=== PATIENT | female | born 1960 | race Caucasian/White ===

== ENCOUNTER → 2016-10-08 | Outpatient (CLI) | payer OTHER | LOC: RAD 11:06 | PROVIDERS: ATTEND Psychiatry & Neurology Neuromuscular Medicine | DX: M54.2 Cervicalgia (principal); M62.81 Muscle weakness (generalized); M48.02 Spinal stenosis, cervical region | CPT/HCPCS: 72141 ==

== ENCOUNTER 2016-12-25 16:52 | Emergency (ER) | payer OTHER ==
--- NOTE | 2016-12-25 17:20 | ER Document Report ---
ED General - General Stated Complaint: POSSIBLE ALLERGIC REACTION Time Seen by Provider: 12/25/16 17:20 Mode of Arrival: Medic Information source: Patient, Emergency Med Personnel Notes: This is a 56-year-old female that is brought in by EMS with acute reaction to IV dye. The patient has a history of an essential tremor, cervical disc disease and was recently evaluated by urologist for hematuria. She underwent patient's CT of the abdomen with contrast in [facility] and was treated with prednisone overnight beforehand. The patient states that shortly after the CT, she did have some tingling in her tongue but did not feel that bad. She drove home and by the time she got home she was developing hives, sweating and tongue swelling. She was at the urologist office at that time and she was given subcu epinephrine, Solu-Medrol and hydralazine. EMS was called to the scene and the patient was given by EMS: Benadryl, ranitidine and albuterol. TRAVEL OUTSIDE OF THE [place] IN LAST 30 DAYS: No - HPI Onset: Just prior to arrival Onset/Duration: Sudden Quality of pain: No pain Severity: None Pain Level: Denies Associated symptoms: Shortness of breath, Other - Swelling and erythema. denies : Chest pain, Fever Exacerbated by: Denies Relieved by: Denies Similar symptoms previously: Yes Recently seen / treated by doctor: Yes - Related Data Allergies/Adverse Reactions: azithromycin [From Zithromax] Allergy (Unknown, Verified 11/16/11 17:57) cetirizine HCl [From Zyrtec] Allergy (Unknown, Verified 11/16/11 17:57) clarithromycin [From Biaxin] Allergy (Unknown, Verified 11/16/11 17:57) doxepin [Doxepin] Allergy (Unknown, Verified 11/16/11 17:57) iodine [Iodine] Allergy (Unknown, Verified 11/16/11 17:57) latex [Latex] Allergy (Unknown, Verified 11/16/11 17:57) morphine [Morphine] Allergy (Unknown, Verified 11/16/11 17:57) povidone-iodine [From Betadine] Allergy (Unknown, Verified 11/16/11 17:57) Shellfish * Allergy (Unknown, Verified 11/16/11 17:57) Soap [From Betadine] Allergy (Unknown, Verified 11/16/11 17:57) Sulfa (Sulfonamide Antibiotics) Allergy (Unknown, Verified 11/16/11 17:57) wheat [Wheat] Allergy (Unknown, Verified 11/16/11 17:57) Ant Bites Allergy (Unknown, Uncoded 11/16/11 17:57) Bananas Allergy (Unknown, Uncoded 11/16/11 17:57) Bee Stings Allergy (Unknown, Uncoded 11/16/11 17:57) Mushrooms Allergy (Unknown, Uncoded 11/16/11 17:57) Nuts Allergy (Unknown, Uncoded 11/16/11 17:57) Seafood Allergy (Unknown, Uncoded 11/16/11 17:57) Spider Bites Allergy (Unknown, Uncoded 11/16/11 17:57) Past Medical History - General Information source: Patient - Social History Smoking Status: Never Smoker Cigarette use (# per day): No Chew tobacco use (# tins/day): No Smoking Education Provided: No Frequency of alcohol use: None Drug Abuse: None Lives with: Family Family History: Reviewed & Not Pertinent Patient has suicidal ideation: No Patient has homicidal ideation: No - Past Medical History Cardiac Medical History: Reports: None Pulmonary Medical History: Reports: None EENT Medical History: Reports: None Neurological Medical History: Reports: Hx Migraine Endocrine Medical History: Reports: None Renal/ Medical History: Reports: Hx Kidney Stones - Diarrhea, kidney stones, Other Malignancy Medical History: Reports: None GI Medical History: Reports: None Musculoskeltal Medical History: Reports Hx Arthritis Skin Medical History: Reports None Psychiatric Medical History: Reports: None Traumatic Medical History: Reports: None Infectious Medical History: Reports: None Past Surgical History: Reports: Hx Section - x2 - Immunizations Hx Diphtheria, Pertussis, Tetanus Vaccination: No Review of Systems - Review of Systems Constitutional: denies: Chills, Fever EENT: See HPI Cardiovascular: No symptoms reported Respiratory: See HPI Gastrointestinal: No symptoms reported Genitourinary: No symptoms reported Female Genitourinary: No symptoms reported Musculoskeletal: No symptoms reported Skin: No symptoms reported Hematologic/Lymphatic: No symptoms reported Neurological/Psychological: No symptoms reported Physical Exam - Vital signs Vitals: Temp BP Pulse Ox 98.4 F 125/92 H 100 12/25/16 16:57 12/25/16 16:57 12/25/16 16:57 Notes: Physical exam: GENERAL: 56-year-old female, alert and oriented 3 HEAD: Atraumatic, normocephalic. EYES: Pupils equal round and reactive to light, extraocular movements intact, sclera anicteric, conjunctiva are normal. ENT: Obvious tongue swelling or swelling at the bottom of the tongue. Moist mucous membranes. NECK: Normal range of motion, supple without lymphadenopathy. No stridor. LUNGS: Scattered wheezing good airway movement HEART: Regular rate and rhythm without murmurs, rubs or gallops. ABDOMEN: Soft, normoactive bowel sounds. No tenderness to palpation. No guarding, no rebound. No masses appreciated. EXTREMITIES: Normal range of motion, no pitting or edema. No clubbing or cyanosis. NEUROLOGICAL: Trauma (baseline) Cranial nerves II through XII grossly intact. Normal speech, normal gait. PSYCH: Normal mood, normal affect. SKIN: Erythematous skin on the face and upper extremities Course - Re-evaluation Re-evalutation: 12/25/16 22:00 It was observed several hours and she has had no difficulty. Currently she states she feels a little red in the face but is breathing well and has no difficulty with her breathing and she states she feels fine. She is requesting to go home. - Vital Signs Vital signs: Temp Pulse Resp BP Pulse Ox 98.4 F 15 110/56 L 96 12/25/16 16:57 12/25/16 18:39 12/25/16 18:39 12/25/16 18:39 - Laboratory Result Diagrams: 12/25/16 16:50 12/25/16 16:50 Laboratory results interpreted by me: 12/25/16 12/25/16 16:50 16:50 WBC 12.5 H Seg Neutrophils % 81.1 H Monocytes % 2.3 L Absolute Neutrophils 10.1 H Chloride 108 H Carbon Dioxide 17 L Glucose 296 H - Diagnostic Test Radiology reviewed: Image reviewed, Reports reviewed - Patient has no infiltrates or effusion Discharge - Discharge Clinical Impression: Allergic reaction to IV dye Condition: Stable Disposition: HOME, SELF-CARE Instructions: Acute Allergic Reaction ([facility]) Additional Instructions: Recommendations: Continue with the Zantac twice daily: Begin tomorrow. Take the prednisone once daily: Start tomorrow morning. Take Benadryl every 6 hours for the next few days: 25-50 mg every 6 hours. Then , take it every 6 hours for itching. I have any shortness of breath, take the EpiPen and then return to the emergency room at once Up with your primary care doctor as well as your urologist Prescriptions: Prednisone [Deltasone 20 mg Tablet] 3 tab PO DAILY 5 Days Ranitidine HCl [Zantac] 150 mg PO BID #10 tablet
[2016-12-25 18:03] LABS: ABSOLUTE MONOCYTES (AUTO) 0.3 10^3/uL (0.1-1.4); ABSOLUTE NEUT (AUTO) 10.1 10^3/uL (1.7-8.2); BASOPHILS % (AUTO) 0.2 % (0-2); LYMPHOCYTES % (AUTO) 16.4 % (13-45); MEAN CORPUSCULAR HEMOGLOBIN 31.5 pg (27.0-33.4); MEAN CORPUSCULAR HGB CONC 32.5 g/dL (32.0-36.0); MEAN CORPUSCULAR VOLUME 97 fl (80-97); MONOCYTES % (AUTO) 2.3 % (3-13); RED BLOOD COUNT 4.44 10^6/uL (3.72-5.28); RED CELL DISTRIBUTION WIDTH 12.7 % (11.5-14.0); SEGMENTED NEUTROPHILS % (AUTO) 81.1 % (42-78); WHITE BLOOD COUNT 12.5 10^3/uL (4.0-10.5)
--- NOTE | 2016-12-25 18:17 | RADIOLOGY REPORT (SQ) ---
EXAM DESCRIPTION: CHEST SINGLE VIEW COMPLETED DATE/TIME: 12/25/2016 6:06 pm REASON FOR STUDY: sob COMPARISON: 11/16/2011 EXAM PARAMETERS: NUMBER OF VIEWS: One view. TECHNIQUE: Single frontal radiographic view of the chest acquired. RADIATION DOSE: NA LIMITATIONS: None. FINDINGS: LUNGS AND PLEURA: No opacities, masses or pneumothorax. No pleural effusion. MEDIASTINUM AND HILAR STRUCTURES: No masses. Contour normal. HEART AND VASCULAR STRUCTURES: Heart normal in size. Normal vasculature. BONES: No acute findings. HARDWARE: None in the chest. OTHER: No other significant finding. IMPRESSION: NO ACUTE RADIOGRAPHIC FINDING IN THE CHEST. TECHNICAL DOCUMENTATION: JOB ID: [id number]
[2016-12-25 18:19] LABS: ALANINE AMINOTRANSFERASE 22 U/L (9-52); ALKALINE PHOSPHATASE 81 U/L (38-126); ANION GAP 17 (5-19); ASPARTATE AMINO TRANSFERASE 22 U/L (14-36); BILIRUBIN,DIRECT 0.3 mg/dL (0.0-0.4); BILIRUBIN,TOTAL 0.4 mg/dL (0.2-1.3); BLOOD UREA NITROGEN 13 mg/dL (7-20); CALCIUM 8.9 mg/dL (8.4-10.2); CARBON DIOXIDE 17 mmol/L (22-30); CHLORIDE 108 mmol/L (98-107); CREATINE KINASE 91 U/L (30-135); CREATININE RESULT 0.67 mg/dL (0.52-1.25); GLUCOSE 296 mg/dL (75-110); POTASSIUM 3.6 mmol/L (3.6-5.0); SODIUM 142.4 mmol/L (137-145); TOTAL PROTEIN 7.1 g/dL (6.3-8.2)
[2016-12-25 18:31] LABS: CREATINE KINASE MB 1.02 ng/mL (<4.55); TROPONIN I < 0.012 ng/mL
[2016-12-25 18:49] VITALS: BP 110/56
--- NOTE | 2016-12-26 03:57 | EKG REPORT ---
SEVERITY:- BORDERLINE ECG - SINUS RHYTHM BORDERLINE T ABNORMALITIES, ANTERIOR LEADS : Confirmed by: Ashlee Mojica MD 26-Dec-2016 03:56:02
== END 2016-12-25 20:54 | disposition home or self-care (01) ==
LOC: ER 16:52
DX: L50.9 Urticaria, unspecified (principal); R61 Generalized hyperhidrosis; R22.0 Localized swelling, mass and lump, head; T50.8X5A Adverse effect of diagnostic agents, initial encounter; Y92.531 Health care provider office as the place of occurrence of the external cause; R06.02 Shortness of breath; R06.2 Wheezing; Z88.1 Allergy status to other antibiotic agents; Z88.8 Allergy status to other drugs, medicaments and biological substances; Z91.040 Latex allergy status; Z88.5 Allergy status to narcotic agent; Z91.013 Allergy to seafood; Z88.2 Allergy status to sulfonamides; Z91.048 Other nonmedicinal substance allergy status; Z91.038 Other insect allergy status; Z91.030 Bee allergy status; Z88.3 Allergy status to other anti-infective agents
CPT/HCPCS: 36415; 71010; 80053; 82550; 82553; 84484; 85025; 93005; 93010; 99284

== ENCOUNTER 2020-06-30 21:55 | Emergency (ER) | payer OTHER ==
[2020-06-30] MEDS ORDERED: ONDANSETRON 4 MG TAB.RAPDIS PO ONE (22:56)
[2020-06-30] MEDS ORDERED: KETOROLAC TROMETHAMINE 60 MG/2 ML SDV IM ONE (22:56)
--- NOTE | 2020-06-30 22:58 | ER Document Report ---
ED Medical Screen (RME) - General Chief Complaint: Possible Kidney Stone Stated Complaint: RIGHT SEVERE FLANK PAIN AND PELVIC Time Seen by Provider: 06/30/20 22:52 Primary Care Provider: JESSIE EM FNP [Primary Care Provider] - Follow up as needed Mode of Arrival: Wheelchair Information source: Patient Notes: HPI; 60-year-old female presents to the emergency room with worsening left flank pain that started earlier this evening. Patient states she started having left flank pain on Thursday had a virtual visit with her primary care physician on Thursday. Does have a history of kidney stones. She states her primary care provider physician put her on 3 days of Cipro patient states she was getting better and then symptoms worsened tonight. She has been taking her hydrocodone which she takes for chronic pain without any relief. Does complain of nausea but no vomiting. Not taking any other medications for her symptoms. PE: Alert and oriented x3. Lungs: Clear to auscultation without rales, rhonchi, wheezes. Heart: Regular rate rhythm without murmurs, rubs, gallops. Positive for left CVA tenderness. I have greeted and performed a rapid initial assessment of this patient. A comprehensive ED assessment and evaluation of the patient, analysis of test results and completion of the medical decision making process will be conducted by additional ED providers. I have specifically instructed the patient or family members with the patient to immediately return to any nursing staff should anything change in the patient's condition or with their chief complaint. TRAVEL OUTSIDE OF THE [place] IN LAST 30 DAYS: No - Related Data Allergies/Adverse Reactions: azithromycin [From Zithromax] Allergy (Unknown, Verified 05/10/17 04:34) cetirizine HCl [From Zyrtec] Allergy (Unknown, Verified 05/10/17 04:34) clarithromycin [From Biaxin] Allergy (Unknown, Verified 05/10/17 04:34) doxepin [Doxepin] Allergy (Unknown, Verified 05/10/17 04:34) iodine [Iodine] Allergy (Unknown, Verified 05/10/17 04:34) latex [Latex] Allergy (Unknown, Verified 05/10/17 04:34) morphine [Morphine] Allergy (Unknown, Verified 05/10/17 04:34) povidone-iodine [From Betadine] Allergy (Unknown, Verified 05/10/17 04:34) Shellfish * Allergy (Unknown, Verified 05/10/17 04:34) Soap [From Betadine] Allergy (Unknown, Verified 05/10/17 04:34) Sulfa (Sulfonamide Antibiotics) Allergy (Unknown, Verified 05/10/17 04:34) wheat [Wheat] Allergy (Unknown, Verified 05/10/17 04:34) fluticasone [From Flonase] Allergy (Verified 05/10/17 04:34) gabapentin Allergy (Verified 05/10/17 04:34) liothyronine [From Cytomel] Allergy (Verified 05/10/17 04:34) primidone Allergy (Verified 05/10/17 04:34) tramadol [From Ultram] Allergy (Verified 05/10/17 04:34) Ant Bites Allergy (Unknown, Uncoded 05/10/17 04:34) Bananas Allergy (Unknown, Uncoded 05/10/17 04:34) Bee Stings Allergy (Unknown, Uncoded 05/10/17 04:34) Mushrooms Allergy (Unknown, Uncoded 05/10/17 04:34) Nuts Allergy (Unknown, Uncoded 05/10/17 04:34) Seafood Allergy (Unknown, Uncoded 05/10/17 04:34) Spider Bites Allergy (Unknown, Uncoded 05/10/17 04:34) Past Medical History - Social History Chew tobacco use (# tins/day): No Drug Abuse: None Neurological Medical History: Reports: Hx Migraine Renal/ Medical History: Reports: Hx Kidney Stones - Diarrhea, kidney stones. Denies: Hx Peritoneal Dialysis Musculoskeltal Medical History: Reports Hx Arthritis Past Surgical History: Reports: Hx Section - x2, Hx Orthopedic Surgery - neck,left knee, Hx Thyroid Surgery - thyroidectomy - Immunizations Hx Diphtheria, Pertussis, Tetanus Vaccination: No Physical Exam - Vital signs Vitals: Temp Pulse Resp BP Pulse Ox 97.7 F 57 L 18 132/53 H 96 06/30/20 22:14 06/30/20 22:14 06/30/20 22:14 06/30/20 22:14 06/30/20 22:14 Course - Vital Signs Vital signs: Temp Pulse Resp BP Pulse Ox 97.7 F 57 L 18 132/53 H 96 06/30/20 22:14 06/30/20 22:14 06/30/20 22:14 06/30/20 22:14 06/30/20 22:14 Doctor's Discharge - Discharge Referrals: JESSIE EM FNP [Primary Care Provider] - Follow up as needed
[2020-07-01 00:28] LABS: APPEARANCE,URINE SLIGHTLY-CLOUDY; BILIRUBIN,URINE NEGATIVE (NEGATIVE); COLOR,URINE YELLOW; GLUCOSE, URINE NEGATIVE (NEGATIVE); KETONES,URINE NEGATIVE (NEGATIVE); LEUKOCYTE ESTERASE,URINE NEGATIVE (NEGATIVE); NITRITE,URINE NEGATIVE (NEGATIVE); PROTEIN,URINE 100 mg/dL (NEGATIVE); URINE SPECIFIC GRAVITY 1.012; UROBILINOGEN,URINE NEGATIVE mg/dL (<2.0)
--- NOTE | 2020-07-01 00:30 | RADIOLOGY REPORT (SQ) ---
CLINICAL HISTORY: flank pain COMPARISON: None. TECHNIQUE: CT ABDOMEN PELVIS WITHOUT IV CONTRAST on 06/30/2020 10:56 PM DATA SME This exam was performed according to our departmental dose-optimization program, which includes automated exposure control, adjustment of the mA and/or kV according to patient size and/or use of iterative reconstruction technique. FINDINGS: Lower lungs are clear. Abdomen: The liver is normal in appearance. There is no biliary dilatation. Gallbladder is normal in appearance. The pancreas and spleen are normal in appearance. Adrenal glands are normal. Right kidney contains a 2 mm mid pole calculus without hydronephrosis. Left kidney contains two punctate lower pole calculi with mild hydronephrosis. There is a 4 mm left UVJ calculus. Abdominal aorta is normal in course and caliber without aneurysm. There is no free air. There is no retroperitoneal adenopathy. Pelvis: There is large amount of stool throughout the colon. Urinary bladder is unremarkable. There is no free fluid. Uterus is normal in size. Appendix is normal. Skeleton: There are no acute osseous findings. No suspicious bony lesions. IMPRESSION: Bilateral nephrolithiasis with a mildly obstructing 4 mm left UVJ calculus.
[2020-07-01 02:08] LABS: ABSOLUTE BASOPHILS # (AUTO) 0.1 10^3/uL (0.0-0.2); ABSOLUTE EOSINOPHILS # (AUTO) 0.1 10^3/uL (0.0-0.6); ABSOLUTE LYMPHOCYTES (AUTO) 1.6 10^3/uL (0.5-4.7); ABSOLUTE MONOCYTES (AUTO) 0.3 10^3/uL (0.1-1.4); ABSOLUTE NEUT (AUTO) 6.3 10^3/uL (1.7-8.2); BASOPHILS % (AUTO) 1.1 % (0-2); HEMATOCRIT 40.4 % (36.0-47.0); LYMPHOCYTES % (AUTO) 18.9 % (13-45); MEAN CORPUSCULAR HEMOGLOBIN 33.4 pg (27.0-33.4); MEAN CORPUSCULAR HGB CONC 34.7 g/dL (32.0-36.0); MEAN CORPUSCULAR VOLUME 96 fl (80-97); MONOCYTES % (AUTO) 3.2 % (3-13); PLATELET COUNT 162 10^3/uL (150-450); RED BLOOD COUNT 4.21 10^6/uL (3.72-5.28); RED CELL DISTRIBUTION WIDTH 12.9 % (11.5-14.0); SEGMENTED NEUTROPHILS % (AUTO) 75.8 % (42-78); TOTAL CELLS COUNTED % (AUTO) 100 %; WHITE BLOOD COUNT 8.4 10^3/uL (4.0-10.5)
[2020-07-01 02:23] LABS: ALBUMIN 4.2 g/dL (3.5-5.0); ALKALINE PHOSPHATASE 136 U/L (38-126); ANION GAP 8 (5-19); ASPARTATE AMINO TRANSFERASE 23 U/L (14-36); BILIRUBIN,DIRECT 0.2 mg/dL (0.0-0.4); BILIRUBIN,TOTAL 0.5 mg/dL (0.2-1.3); BLOOD UREA NITROGEN 18 mg/dL (7-20); CALCIUM 9.3 mg/dL (8.4-10.2); CARBON DIOXIDE 24 mmol/L (22-30); CHLORIDE 107 mmol/L (98-107); GLUCOSE 129 mg/dL (75-110); POTASSIUM 4.4 mmol/L (3.6-5.0); TOTAL PROTEIN 7.4 g/dL (6.3-8.2)
--- NOTE | 2020-07-01 03:00 | ER Document Report ---
ED GI/ - General Chief Complaint: Possible Kidney Stone Stated Complaint: RIGHT SEVERE FLANK PAIN AND PELVIC Time Seen by Provider: 06/30/20 22:52 Primary Care Provider: JESSIE EM FNP [Primary Care Provider] - Follow up as needed BHARTI ROJO NP [NO LOCAL MD] - Follow up in 3-5 days Mode of Arrival: Wheelchair Notes: Patient is a 60-year-old female who presents emergency department with a chief complaint of right flank and pelvic pain that started about a week ago. She was seen by her primary care provider and was started on ciprofloxacin. States that her pain has not gotten any better. States that she has a history of kidney stones in the past. Describes her pain as a sharp, stabbing pain. TRAVEL OUTSIDE OF THE [place] IN LAST 30 DAYS: No - Related Data Allergies/Adverse Reactions: azithromycin [From Zithromax] Allergy (Unknown, Verified 05/10/17 04:34) cetirizine HCl [From Zyrtec] Allergy (Unknown, Verified 05/10/17 04:34) clarithromycin [From Biaxin] Allergy (Unknown, Verified 05/10/17 04:34) doxepin [Doxepin] Allergy (Unknown, Verified 05/10/17 04:34) iodine [Iodine] Allergy (Unknown, Verified 05/10/17 04:34) latex [Latex] Allergy (Unknown, Verified 05/10/17 04:34) morphine [Morphine] Allergy (Unknown, Verified 05/10/17 04:34) povidone-iodine [From Betadine] Allergy (Unknown, Verified 05/10/17 04:34) Shellfish * Allergy (Unknown, Verified 05/10/17 04:34) Soap [From Betadine] Allergy (Unknown, Verified 05/10/17 04:34) Sulfa (Sulfonamide Antibiotics) Allergy (Unknown, Verified 05/10/17 04:34) wheat [Wheat] Allergy (Unknown, Verified 05/10/17 04:34) fluticasone [From Flonase] Allergy (Verified 05/10/17 04:34) gabapentin Allergy (Verified 05/10/17 04:34) liothyronine [From Cytomel] Allergy (Verified 05/10/17 04:34) primidone Allergy (Verified 05/10/17 04:34) tramadol [From Ultram] Allergy (Verified 05/10/17 04:34) Ant Bites Allergy (Unknown, Uncoded 05/10/17 04:34) Bananas Allergy (Unknown, Uncoded 05/10/17 04:34) Bee Stings Allergy (Unknown, Uncoded 05/10/17 04:34) Mushrooms Allergy (Unknown, Uncoded 05/10/17 04:34) Nuts Allergy (Unknown, Uncoded 05/10/17 04:34) Seafood Allergy (Unknown, Uncoded 05/10/17 04:34) Spider Bites Allergy (Unknown, Uncoded 05/10/17 04:34) Past Medical History - General Information source: Patient - Social History Smoking Status: Never Smoker Chew tobacco use (# tins/day): No Drug Abuse: None Family History: Reviewed & Not Pertinent Neurological Medical History: Reports: Hx Migraine Renal/ Medical History: Reports: Hx Kidney Stones - Diarrhea, kidney stones. Denies: Hx Peritoneal Dialysis Musculoskeletal Medical History: Reports Hx Arthritis Past Surgical History: Reports: Hx Section - x2, Hx Orthopedic Surgery - neck,left knee, Hx Thyroid Surgery - thyroidectomy - Immunizations Hx Diphtheria, Pertussis, Tetanus Vaccination: No Review of Systems - Review of Systems Notes: REVIEW OF SYSTEMS: CONSTITUTIONAL : Denies recent illness. Denies recent unintentional weight loss. Denies fever, chills, or sweats. EENT: Denies eye, ear, throat, or mouth pain, discharge, or symptoms. Denies nasal or sinus congestion. CARDIOVASCULAR: Denies chest pain. RESPIRATORY: Denies shortness of breath, cough, congestion, difficulty breathing, or wheezing. GASTROINTESTINAL: Denies nausea, vomiting, and diarrhea. Denies abdominal pain. Denies constipation. GENITOURINARY: See HPI. MUSCULOSKELETAL: See HPI. Denies joint pain or swelling. SKIN: Denies rash, itchiness, or lesions HEMATOLOGIC : Denies easy bruising or bleeding. LYMPHATIC: Denies swollen, painful, enlarged glands. NEUROLOGICAL: Denies no numbness or tingling denies weakness. Denies headache. Denies altered mental status. Denies alteration in speech. PSYCHIATRIC: Denies stress, anxiety, alteration in sleep patterns, or depression. All other systems reviewed and negative. Physical Exam - Vital signs Vitals: Temp Pulse Resp BP Pulse Ox 97.7 F 57 L 18 132/53 H 96 06/30/20 22:14 06/30/20 22:14 06/30/20 22:14 06/30/20 22:14 06/30/20 22:14 - Notes Notes: PHYSICAL EXAMINATION: GENERAL: Appears well, healthy, well-nourished, no acute distress. HEAD: Normocephalic, atraumatic. EYES: PERRL, conjunctiva normal, all extraocular movements intact, sclera nonicteric ENT: Moist mucous membranes. NECK: Supple, no noticeable swelling, redness, rash. Normal range of motion. LUNGS: Equal breath sounds bilaterally and clear to auscultation. No wheezes rales or rhonchi. CARDIOVASCULAR: S1-S2, regular rate, regular rhythm. Radial pulses 2+, normal. ABDOMEN: Normoactive bowel sounds. Soft, tender mid lower abdomen, no guarding, no rebound tenderness, and no masses palpated. EXTREMITIES: Normal strength and range of motion, no pitting or edema. No cyanosis. NEUROLOGICAL: Moves all extremities upon command. Strength 5/5 in all extremities. PSYCH: Normal mood, normal affect. SKIN: Warm, dry. No rash, lesions, ulcerations noted. Normal skin turgor. BACK: Right CVA tenderness. Course - Re-evaluation Re-evalutation: 07/01/20 03:56 Hematology is unremarkable. Chemistries are also unremarkable. Creatinine and BUN are normal. Urinalysis shows large amount of blood, consistent with her kidney stone that is [address] scan. Patient does have some budding yeast. We will give the patient Diflucan. We will give the patient a liter of fluids and will reassess. 07/01/20 04:30 Patient states that she feels better after receiving Flomax, Toradol, and IV fluids. Advised her to follow-up with urology as he has a urologist. Will place the patient on Flomax. Advised her to continue with her current pain medications, as she is on Peapack and Motrin through pain management already. She is in agreement with this plan. Follow-up precautions were given. Verbal discharge instructions were given to the patient. They verbalized understanding. They are stable for discharge. - Vital Signs Vital signs: Temp Pulse Resp BP Pulse Ox 97.7 F 59 L 16 127/69 H 99 07/01/20 04:54 07/01/20 04:54 07/01/20 04:54 07/01/20 04:54 07/01/20 04:54 - Laboratory Results Result Diagrams: 07/01/20 02:00 07/01/20 02:00 Laboratory Results Interpreted: 06/30/20 07/01/20 23:54 02:00 Glucose 129 H Alkaline Phosphatase 136 H Urine Protein 100 H Urine Blood LARGE H Critical Laboratory Results Reviewed: No Critical Results - Radiology Results Critical Radiology Results Reviewed: No Critical Results Discharge - Discharge Clinical Impression: Yeast UTI, Kidney stone on right side Condition: Stable Disposition: HOME, SELF-CARE Additional Instructions: You were seen today in the emergency department for flank pain. You have a kidney stone. Take Flomax. Take your ibuprofen and Peapack as prescribed. Follow-up with your urologist and primary care provider regards to this visit. Prescriptions: Fluconazole [Diflucan 100 mg Tablet] 100 mg PO ASDIR PRN #1 tablet PRN Reason: Tamsulosin HCl [Flomax 0.4 mg Cap.sr] 0.4 mg PO DAILY #7 cap.sr.24h Referrals: JESSIE EM FNP [Primary Care Provider] - Follow up as needed BHARTI ROJO NP [NO LOCAL MD] - Follow up in 3-5 days
[2020-07-01] MEDS ORDERED: NORMAL SALINE 1000 ML 1,000 ML IV ONE (03:21)
[2020-07-01] MEDS ORDERED: TAMSULOSIN HCL 0.4 MG CAP.SR.24H PO ONE (03:28)
[2020-07-01] MEDS ORDERED: FLUCONAZOLE 100 MG TABLET PO ONE (03:55)
[2020-07-01 04:55] VITALS: BP 127/69
== END 2020-07-01 04:54 | disposition home or self-care (01) ==
LOC: ER 21:55
DX: N20.0 Calculus of kidney (principal); B37.49 Other urogenital candidiasis; R10.9 Unspecified abdominal pain; R10.2 Pelvic and perineal pain; Z87.442 Personal history of urinary calculi; Z88.3 Allergy status to other anti-infective agents; Z91.040 Latex allergy status; Z88.6 Allergy status to analgesic agent
CPT/HCPCS: 99285; 96372; 96360; 36415; 85025; 80053; 81001; 74176; J1885; S0119; J7030